=== PATIENT | male | born 1995 | race Caucasian/White ===

== ENCOUNTER 2024-05-21 16:53 | Inpatient (IN) ==
[2024-05-21 17:58] LABS: Appearance Urine Clear (Clear); Bilirubin Urine Negative (Negative); Blood Urine Negative (Negative); Color Urine Yellow; Glucose Urine UA Negative (Negative); Ketones Urine Negative (Negative); Leukocyte Esterase Urine Negative (Negative); Nitrite Urine Negative (Negative); Protein Urine Negative (Negative); Specific Gravity Urine 1.007 (1.000-1.030); Urobilinogen Urine Negative (Negative)
[2024-05-21 18:02] LABS: Basophils # (auto) 0.02 K/uL (0.00-0.20); Basophils % (auto) 0.3 %; Eosinophils # (auto) 0.16 K/uL (0.00-0.50); Eosinophils % (auto) 2.1 %; Hematocrit (blood only) 44.2 % (42.0-52.0); Hemoglobin 15.4 g/dl (14.0-18.0); Immature Granulocytes # (auto) 0.02 K/uL (0.01-0.20); Immature Granulocytes % (auto) 0.3 %; Lymphocytes # (auto) 1.68 K/uL (1.20-3.40); Lymphocytes % (auto) 22.5 %; Mean Corpuscular Hemoglobin 29.1 pg (25.0-34.0); Mean Corpuscular Hgb Conc 34.8 g/dL (32.0-36.0); Mean Corpuscular Volume 83.4 fL (80.0-100.0); Monocytes % (auto) 6.7 %; Neutrophils # (auto) 5.09 K/uL (1.40-6.50); Neutrophils % (auto) 68.1 %; Platelet Count 226 K/uL (130-400); RDW Coefficient of Variation 11.9 % (11.5-14.5); RDW Standard Deviation 36.1 fL (36.4-46.3); White Blood Count 7.47 K/ul (4.8-10.8)
[2024-05-21 18:18] LABS: Albumin Globulin Ratio 1.7 (0.9-2); Albumin Level 4.8 gm/dl (3.4-5.0); BUN Creatinine Ratio 10.9 (10-20); Bilirubin,Total 0.7 mg/dl (0.2-1.0); Calcium 9.6 mg/dl (8.6-10.3); Creatinine Clr Calc Pharmacy 141.5 ml/min; Globulin 2.8 gm/dl (2.5-4.0); Potassium 3.6 mmol/L (3.5-5.1); Total Protein 7.6 gm/dl (6.0-8.3)
[2024-05-21] MEDS: OPTIRAY 320 100ml IV ONE (19:26)
--- NOTE | 2024-05-21 20:25 | Emergency Department Note ---
Impression & Plan Acute appendicitis ED Provider Note NAME: PHOEBE CHAPA AGE: 29 SEX: M : 1995 ARRIVES VIA: Walk-In INFORMANT: Patient, ED PROVIDER(S): Dasia Robles MD CHIEF COMPLAINT: Abdominal pain HPI: This is a 29-year-old male present for abdominal pain. Patient notes that since last night began having right lower quadrant abdominal pain. He notes it is painful at rest, worse with palpation. Occasional left-sided pain as well notes no fevers, nausea, vomiting. Occasional constipation which is since resolved since morning. He had a hernia repair about 5 years ago. No abnormality since then. ROS: See above HPI for pertinent positives & negatives. A total of 10 systems reviewed and were otherwise negative. PAST MEDICAL HISTORY: See Below PAST SURGICAL HISTORY: See Below FAMILY HISTORY: See Below SOCIAL HISTORY: See Below HOME MEDICATIONS: See Below ALLERGIES: See Below VITALS: See Below PHYSICAL EXAMINATION: General: resting comfortably in no acute distress Head: Normocephalic and atraumatic Eyes: Normal inspection, extraocular muscles intact Ear, nose, throat: Normal external exam Neck: Normal range of motion Respiratory: lungs clear to auscultation bilaterally Cardiovascular: Regular rate/rhythm, no murmur GI: Mild left lower quadrant tenderness Extremities: nontender, moves all extremities Neuro: The patient awake and alert, appropriately conversive, no focal deficits, symmetric faces Skin: Warm, dry, and intact MEDICAL DECISION MAKING: This is a 29-year-old male presenting for abdominal pain. Consider appendicitis, diverticulitis, cholecystitis, pancreatitis perforated bowel, low concern for testicular abnormality. -Bloodwork is reviewed showing no significant leukocytosis, anemia, electrolyte or creatinine abnormality -Vital signs are reviewed without abnormality -UA currently negative -After significant delay with CT imaging, patient is positive for uncomplicated appendicitis. -Discussed Dr. Ferrer, who recommends medical manage with IV antibiotics and medical admission. -IV Zosyn ordered, Dr. Cui consulted for admission Differential diagnosis: Consider appendicitis, diverticulitis, cholecystitis, pancreatitis perforated bowel, low concern for testicular abnormalit ER treatment provided: See below Independent History obtained from: Girlfriend Diagnostics interpreted by me: ECG: None Cardiac Monitoring: An order was placed for continuous cardiac monitoring. The monitor shows a rate of 64 with sinus rhythm. Laboratory studies: As stated above and show below. Imaging studies: See below. Past Med/Surg History Problem List (Updated 05/22/24 @ 01:58 by Dasia Robles MD) Acute appendicitis (Acute) ADHD Medical History (Updated 05/22/24 @ 01:58 by Dasia Robles MD) No significant past medical history Surgical History (Updated 02/02/24 @ 09:28 by MICHELLE Huizar III) S/P hernia surgery Umbilical hernia repair 2020 Family History Father Hypertension Denies family history of Ovarian cancer Prostate cancer Myocardial infarction Breast cancer Colorectal cancer Social History Smoking Status: Former smoker Tobacco Type: Cigarettes and E-cigarettes / Vaping Age Started Using Tobacco: 16; packs per day: 1; Second Hand Exposure: No; Do You Dip or Chew Tobacco: No; Hx Alcohol Use: Yes Alcohol type: wine and hard liquor Alcohol Intake Frequency: Monthly or Less Hx Substance Use: No Preferred Language: Frisian marital status: Single Current Living Situation: Family and Significant Other Current Living Situation Comment: 3 y.o stepson, girlfriend current occupational status: employed current occupation: Nurse Case Management for [employer] How many Children do You have: 0 Feels Safe at Home: Yes Childhood Exposure to Second-Hand Smoke: Yes Diet: regular Dental Care, Regularly: Yes Physical Activity Frequency: 1-2 Times per Week Seatbelt Use: always Sunscreen Use: No Allergies Allergies Allergy/AdvReac Type Severity Reaction Status Date / Time No Known Drug Allergies Allergy Verified 02/02/24 09:09 Home Meds Home Medications Medication Instructions Recorded Confirmed ibuprofen PO PRN 02/02/24 02/02/24 naproxen sodium [Aleve] PO PRN 02/02/24 02/02/24 Previous Rx's Medication Instructions Recorded dextroamphetamine-amphetamine 30 30 mg PO DAILY #30 tabs 05/17/24 mg tablet (Adderall) Results & Data (ED) Vital Signs Vital Signs - 24 hr 05/21/24 17:13 05/21/24 17:34 05/21/24 17:34 Temperature 36.7 C Temperature Source Temporal Artery Scan Pulse Rate 90 Pulse Rate [Left Apical] 92 H Pulse Rate from SpO2 Sensor Respiratory Rate 18 18 Respiratory Effort / Characteristics Non-Labored Spontaneous Respiratory Depth Normal Respiratory Pattern Regular Blood Pressure 144/88 H 131/78 Blood Pressure [Right Arm] 131/78 Blood Pressure Mean 106 90 Blood Pressure Mean [Right Arm] 95 Pulse Oximetry 98 97 Oxygen Delivery Method Room Air Room Air Sepsis Recent Fever Within 48 Hours No Sepsis New/Unexplained Change in Mental Status N/A Sepsis Action Taken by Nursing No Action Required 05/21/24 17:42 05/21/24 17:54 05/21/24 18:00 Temperature Temperature Source Pulse Rate 90 91 H Pulse Rate [Left Apical] Pulse Rate from SpO2 Sensor Respiratory Rate 22 23 Respiratory Effort / Characteristics Respiratory Depth Respiratory Pattern Blood Pressure 130/73 Blood Pressure [Right Arm] Blood Pressure Mean 95 Blood Pressure Mean [Right Arm] Pulse Oximetry 97 98 Oxygen Delivery Method Room Air Room Air Sepsis Recent Fever Within 48 Hours Sepsis New/Unexplained Change in Mental Status Sepsis Action Taken by Nursing 05/21/24 18:03 05/21/24 18:06 05/21/24 18:24 Temperature Temperature Source Pulse Rate 106 H 96 H 85 Pulse Rate [Left Apical] Pulse Rate from SpO2 Sensor Respiratory Rate 19 24 Respiratory Effort / Characteristics Respiratory Depth Respiratory Pattern Blood Pressure Blood Pressure [Right Arm] Blood Pressure Mean Blood Pressure Mean [Right Arm] Pulse Oximetry 99 97 Oxygen Delivery Method Room Air Room Air Sepsis Recent Fever Within 48 Hours Sepsis New/Unexplained Change in Mental Status Sepsis Action Taken by Nursing 05/21/24 18:42 05/21/24 19:00 05/21/24 19:00 Temperature Temperature Source Pulse Rate 85 87 Pulse Rate [Left Apical] 90 Pulse Rate from SpO2 Sensor 87 Respiratory Rate 23 18 15 Respiratory Effort / Characteristics Respiratory Depth Respiratory Pattern Blood Pressure 124/68 Blood Pressure [Right Arm] 124/68 Blood Pressure Mean 86 Blood Pressure Mean [Right Arm] 86 Pulse Oximetry 98 97 97 Oxygen Delivery Method Room Air Room Air Sepsis Recent Fever Within 48 Hours Sepsis New/Unexplained Change in Mental Status Sepsis Action Taken by Nursing 05/21/24 20:00 05/21/24 20:00 05/21/24 20:30 Temperature Temperature Source Pulse Rate 87 Pulse Rate [Left Apical] Pulse Rate from SpO2 Sensor 88 Respiratory Rate 25 H Respiratory Effort / Characteristics Respiratory Depth Respiratory Pattern Blood Pressure 133/79 133/79 140/76 Blood Pressure [Right Arm] Blood Pressure Mean 93 97 94 Blood Pressure Mean [Right Arm] Pulse Oximetry 98 Oxygen Delivery Method Sepsis Recent Fever Within 48 Hours Sepsis New/Unexplained Change in Mental Status Sepsis Action Taken by Nursing 05/21/24 20:30 05/21/24 21:00 05/21/24 21:44 Temperature Temperature Source Pulse Rate 80 81 Pulse Rate [Left Apical] 87 Pulse Rate from SpO2 Sensor 81 Respiratory Rate 23 18 Respiratory Effort / Characteristics Respiratory Depth Respiratory Pattern Blood Pressure 140/76 Blood Pressure [Right Arm] Blood Pressure Mean 94 Blood Pressure Mean [Right Arm] Pulse Oximetry 97 96 Oxygen Delivery Method Room Air Sepsis Recent Fever Within 48 Hours Sepsis New/Unexplained Change in Mental Status Sepsis Action Taken by Nursing 05/21/24 23:06 05/21/24 23:30 05/22/24 00:00 Temperature Temperature Source Pulse Rate 76 76 82 Pulse Rate [Left Apical] Pulse Rate from SpO2 Sensor 75 77 Respiratory Rate 16 22 19 Respiratory Effort / Characteristics Respiratory Depth Respiratory Pattern Blood Pressure 120/64 121/73 124/76 Blood Pressure [Right Arm] Blood Pressure Mean 82 89 94 Blood Pressure Mean [Right Arm] Pulse Oximetry 95 96 96 Oxygen Delivery Method Sepsis Recent Fever Within 48 Hours Sepsis New/Unexplained Change in Mental Status Sepsis Action Taken by Nursing 05/22/24 00:30 05/22/24 01:00 05/22/24 01:30 Temperature Temperature Source Pulse Rate 69 87 72 Pulse Rate [Left Apical] Pulse Rate from SpO2 Sensor 73 80 71 Respiratory Rate 17 22 15 Respiratory Effort / Characteristics Respiratory Depth Respiratory Pattern Blood Pressure 121/66 123/73 121/76 Blood Pressure [Right Arm] Blood Pressure Mean 87 89 91 Blood Pressure Mean [Right Arm] Pulse Oximetry 97 96 97 Oxygen Delivery Method Sepsis Recent Fever Within 48 Hours Sepsis New/Unexplained Change in Mental Status Sepsis Action Taken by Nursing 05/22/24 01:43 Temperature Temperature Source Pulse Rate 64 Pulse Rate [Left Apical] Pulse Rate from SpO2 Sensor Respiratory Rate Respiratory Effort / Characteristics Respiratory Depth Respiratory Pattern Blood Pressure Blood Pressure [Right Arm] Blood Pressure Mean Blood Pressure Mean [Right Arm] Pulse Oximetry Oxygen Delivery Method Sepsis Recent Fever Within 48 Hours Sepsis New/Unexplained Change in Mental Status Sepsis Action Taken by Nursing Laboratory Data 05/21/24 17:30 05/21/24 17:30 Lab Results 05/21/24 05/21/24 Range/Units 17:23 17:30 WBC 7.47 (4.8-10.8) K/ul RBC 5.30 (4.70-6.10) M/uL Hgb 15.4 (14.0-18.0) g/dl Hct 44.2 (42.0-52.0) % MCV 83.4 (80.0-100.0) fL MCH 29.1 (25.0-34.0) pg MCHC 34.8 (32.0-36.0) g/dL RDW Std Deviation 36.1 L (36.4-46.3) fL RDW Coeff of Estefanía 11.9 (11.5-14.5) % Plt Count 226 (130-400) K/uL MPV 11.0 (9.4-12.4) fL Immature Gran % (Auto) 0.3 % Neut % (Auto) 68.1 % Lymph % (Auto) 22.5 % Emanuel % (Auto) 6.7 % Eos % (Auto) 2.1 % Baso % (Auto) 0.3 % Neut # (Auto) 5.09 (1.40-6.50) K/uL Lymph # (Auto) 1.68 (1.20-3.40) K/uL Emanuel # (Auto) 0.50 (0.11-0.59) K/uL Eos # (Auto) 0.16 (0.00-0.50) K/uL Baso # (Auto) 0.02 (0.00-0.20) K/uL Immature Gran # (Auto) 0.02 (0.01-0.20) K/uL Sodium 138 (136-145) mmol/L Potassium 3.6 (3.5-5.1) mmol/L Chloride 103 (98-107) mmol/L Carbon Dioxide 27 (21-32) mmol/L Anion Gap 8 (3-11) BUN 10 (6-23) mg/dl Creatinine 0.92 (0.6-1.4) mg/dl Est Cr Clr Drug Dosing 141.5 ml/min eGFR 115.48 BUN/Creatinine Ratio 10.9 (10-20) Glucose 102 H (70-99(Fasting)) mg/dl Calcium 9.6 (8.6-10.3) mg/dl Total Bilirubin 0.7 (0.2-1.0) mg/dl AST 16 (13-39) U/L ALT 19 (7-52) U/L Alkaline Phosphatase 62 (34-104) U/L Total Protein 7.6 (6.0-8.3) gm/dl Albumin 4.8 (3.4-5.0) gm/dl Globulin 2.8 (2.5-4.0) gm/dl Albumin/Globulin Ratio 1.7 (0.9-2) Lipase 23 (11-82) U/L Urine Color Yellow Urine Appearance Clear (Clear) Urine pH 6.0 (4.5-7.5) Ur Specific [place] 1.007 (1.000-1.030) Urine Protein Negative (Negative) Urine Glucose (UA) Negative (Negative) Urine Ketones Negative (Negative) Urine Blood Negative (Negative) Urine Nitrite Negative (Negative) Urine Bilirubin Negative (Negative) Urine Urobilinogen Negative (Negative) Ur Leukocyte Esterase Negative (Negative) Administered Medications Discontinued Medications Piperacillin Sod/Tazobactam Sod (Zosyn) 4.5 gm in 100 mls @ 200 mls/hr IV NOW ONE; Protocol Stop: 05/21/24 23:54 Last Infusion: 05/22/24 00:21 Dose: Infused Documented By: Admin: 05/21/24 23:32 Dose: 200 mls/hr Documented By: ASHLEY Ioversol (Optiray 320 100ml) 94 ml IV ONCE ONE Stop: 05/21/24 19:26 Last Admin: 05/21/24 19:26 Dose: 94 ml Documented By: JOSE Imaging Data Radiologist's Impression: Abdomen/Pelvis CT 05/21/24 18:33 CR Exam(s): CT ABDOMEN + PELVIS With Contrast IV Amt: 94 ml opti 320 EXAM: CT Abdomen and Pelvis With Intravenous Contrast CLINICAL HISTORY: Reason for exam: RLQ pain, appendicitis. TECHNIQUE: Axial computed tomography images of the abdomen and pelvis with intravenous contrast. CTDI is 27.59 mGy and DLP is 1436.44 mGy-cm. Automated exposure control was utilized for the study. A dose lowering technique was utilized adhering to the principles of ALARA. CONTRAST: Patient received 94 ml opti 320 of IV contrast COMPARISON: No relevant prior studies available. FINDINGS: ABDOMEN: Liver: Unremarkable. Gallbladder and bile ducts: Unremarkable. Pancreas: Unremarkable. Spleen: Unremarkable. Adrenals: Unremarkable. Kidneys and ureters: Unremarkable. No obstructing stones. No hydronephrosis. Stomach and bowel: Unremarkable. PELVIS: Appendix: Mucosal thickening and hyperemia within the appendix which is fluid filled measuring up to 1 cm. Periappendiceal fat stranding present. No perforation or abscess. Bladder: Unremarkable. Reproductive: Unremarkable as visualized. ABDOMEN and PELVIS: Intraperitoneal space: Unremarkable. No free air. No significant fluid collection. Bones/joints: No acute fracture. Soft tissues: Unremarkable. Vasculature: Unremarkable. Lymph nodes: Unremarkable. IMPRESSION: Acute uncomplicated appendicitis. Communications: Verify Receipt Electronically signed by: Sesar Busby MD 05/21/24 23:16 PM Discharge Plan Visit Data Chief Complaint: Abdominal Pain Stated Complaint: ABDOMINAL PAIN ED Provider: Dasia Robles Discharge Problem: Acute appendicitis Forms Stand Alone Forms: [facility] Prescriptions Prescriptions: No Action dextroamphetamine-amphetamine [Adderall] 30 mg tablet 30 mg PO DAILY Qty: 30 0RF naproxen sodium [Aleve] PO PRN ibuprofen PO PRN Referrals Referrals: Mj Harris III, CRNP [Primary Care Provider] -
--- NOTE | 2024-05-21 23:17 | CT Scan Report ---
Exam(s): CT ABDOMEN + PELVIS With Contrast IV Amt: 94 ml opti 320 EXAM: CT Abdomen and Pelvis With Intravenous Contrast CLINICAL HISTORY: Reason for exam: RLQ pain, appendicitis. TECHNIQUE: Axial computed tomography images of the abdomen and pelvis with intravenous contrast. CTDI is 27.59 mGy and DLP is 1436.44 mGy-cm. Automated exposure control was utilized for the study. A dose lowering technique was utilized adhering to the principles of ALARA. CONTRAST: Patient received 94 ml opti 320 of IV contrast COMPARISON: No relevant prior studies available. FINDINGS: ABDOMEN: Liver: Unremarkable. Gallbladder and bile ducts: Unremarkable. Pancreas: Unremarkable. Spleen: Unremarkable. Adrenals: Unremarkable. Kidneys and ureters: Unremarkable. No obstructing stones. No hydronephrosis. Stomach and bowel: Unremarkable. PELVIS: Appendix: Mucosal thickening and hyperemia within the appendix which is fluid filled measuring up to 1 cm. Periappendiceal fat stranding present. No perforation or abscess. Bladder: Unremarkable. Reproductive: Unremarkable as visualized. ABDOMEN and PELVIS: Intraperitoneal space: Unremarkable. No free air. No significant fluid collection. Bones/joints: No acute fracture. Soft tissues: Unremarkable. Vasculature: Unremarkable. Lymph nodes: Unremarkable. IMPRESSION: Acute uncomplicated appendicitis. Communications: Verify Receipt Electronically signed by: Sesar Busby MD 05/21/24 23:16 PM
[2024-05-21] MEDS: PIPERACILLIN/TAZOBACTAM 4.5 GM/100 ML BAG IV ONE (23:32)
--- NOTE | 2024-05-22 01:42 | History & Physical Report ---
Date of Service May 22, 2024 Assessment & Plan (1) Uncomplicated acute appendicitis: (2) ADHD: Plan Uncomplicated acute appendicitis- Patient is being admitted to [facility] service at the request of general surgery NPO Continue Zosyn 4.5 g IV every 8 hours begun in the ED Acetaminophen 1 g IV every 8 hours as needed for mild pain or fever Morphine sulfate 2 mg IV every 3 hours as needed for moderate to severe pain Lactated Ringer's at 80 mL/h x 1 L Zofran 4 mg IV every 6 hours as needed Pantoprazole 40 mg IV Consult general surgery Dr. Zamudio, who has been notified by the ED ADHD- Hold Adderall History of Present Illness Chief Complaint: The patient to the emergency department with plaint of right lower quadrant earlier this evening, not associated nausea, vomiting, fevers, chills, change in bowel or bladder pattern. He denies any recent travels or sick exposures. He denies any unusual food intakes Primary Care Provider: Mj Harris III, CRNP The patient is a 29-year-old male with a past medical history including ADHD and history of umbilical hernia repair, who presents to the emergency department with acute onset of right lower quadrant pain without associated symptoms of nausea, vomiting, fevers, chills, change in bowel or bladder habits. CT scan of abdomen pelvis shows acute uncomplicated appendicitis. General surgery consulted by the ED, asks that the patient be admitted to the [facility] service and be placed on IV antibiotics until seen by general surgery Allergies Allergy/AdvReac Type Severity Reaction Status Date / Time No Known Drug Allergies Allergy Verified 02/02/24 09:09 Home Medications Medication Instructions Recorded Confirmed Type ibuprofen PO PRN 02/02/24 02/02/24 History naproxen sodium [Aleve] PO PRN 02/02/24 02/02/24 History dextroamphetamine-amphetamine 30 30 mg PO DAILY #30 tabs 05/17/24 Rx mg tablet (Adderall) Past Med/Surg History Problem List (Updated 05/22/24 @ 02:12 by Antonio Quan MD) Uncomplicated acute appendicitis ADHD Medical History (Updated 05/22/24 @ 02:12 by Antonio Quan MD) No significant past medical history Surgical History (Updated 02/02/24 @ 09:28 by MICHELLE Huizar III) S/P hernia surgery Umbilical hernia repair 2020 Family History Father Hypertension Denies family history of Ovarian cancer Prostate cancer Myocardial infarction Breast cancer Colorectal cancer Social History Smoking Status: Former smoker Tobacco Type: Cigarettes and E-cigarettes / Vaping Age Started Using Tobacco: 16; packs per day: 1; Second Hand Exposure: No; Do You Dip or Chew Tobacco: No; Hx Alcohol Use: Yes Alcohol type: wine and hard liquor Alcohol Intake Frequency: Monthly or Less Hx Substance Use: No Preferred Language: Uzbek marital status: Single Current Living Situation: Family and Significant Other Current Living Situation Comment: 3 y.o saraon, girlfriend current occupational status: employed current occupation: [employer] How many Children do You have: 0 Feels Safe at Home: Yes Childhood Exposure to Second-Hand Smoke: Yes Diet: regular Dental Care, Regularly: Yes Physical Activity Frequency: 1-2 Times per Week Seatbelt Use: always Sunscreen Use: No Review of Systems Review of Systems: The patient denies chest pain, palpitations, shortness of breath, dyspnea on exertion, cough, lower extremity swelling, sore throat, fevers, chills, sweats, weight change, fatigue, nausea, vomiting, diarrhea , constipation, blood in urine or stool, dysuria, urinary frequency or urgency, lightheadedness, dizziness, headache, memory loss, loss of consciousness, rash, abnormal bruising or bleeding, imbalance, focal or generalized weakness, numbness or tingling in arms or legs, generalized arthralgias or myalgias, neck pain, or night sweats. The review of systems is otherwise negative other than for that already noted above, and at least 10 systems have been reviewed. Physical Exam Physical Exam: The patient is awake, alert and oriented 3, well developed and well nourished, normocephalic and atraumatic, lying in bed and in no acute distress. HEENT--PERRL, EOMI, mucous membranes and oropharynx mildly dry. Neck--supple. No JVD. No bruits. Thyroid normal, trachea midline, no adenopathy. Heart--normal S1 and S2. No murmurs, rubs or gallops. Lungs--clear bilaterally, no respiratory distress, no accessory muscle use. Abdomen--normal bowel sounds and soft. Mild right lower quadrant tenderness. No rebound. Nondistended, no hernias or masses, no organomegaly. Extremities--no cyanosis or clubbing. No edema. Dermatologic--normal skin turgor, normal color, no abnormal lymph nodes, no rash. Neurologic--cranial nerves II through XII grossly intact. Rheumatologic--normal range of motion. Psychiatric--normal affect. Results & Data Results & Data Vital Signs (Past 12 Hours) Vital Signs Temp Pulse Pulse Resp BP BP Pulse Ox 05/22/24 01:30 72 15 121/76 97 05/22/24 01:00 87 22 123/73 96 05/22/24 00:30 69 17 121/66 97 05/22/24 00:00 82 19 124/76 96 05/21/24 23:30 76 22 121/73 96 05/21/24 23:06 76 16 120/64 95 05/21/24 21:44 81 05/21/24 21:00 87 18 96 05/21/24 20:30 80 23 140/76 97 05/21/24 20:30 140/76 05/21/24 20:00 87 25 H 133/79 98 05/21/24 20:00 133/79 05/21/24 19:00 87 15 124/68 97 05/21/24 19:00 90 18 124/68 97 05/21/24 18:42 85 23 98 05/21/24 18:24 85 24 97 05/21/24 18:06 96 H 19 99 05/21/24 18:03 106 H 05/21/24 18:00 130/73 05/21/24 17:54 91 H 23 98 05/21/24 17:42 90 22 97 05/21/24 17:34 131/78 05/21/24 17:34 92 H 18 131/78 97 05/21/24 17:13 36.7 C 90 18 144/88 H 98 O2 Del Method 05/22/24 01:30 05/22/24 01:00 05/22/24 00:30 05/22/24 00:00 05/21/24 23:30 05/21/24 23:06 11/01/24 21:44 05/21/24 21:00 Room Air 05/21/24 20:30 05/21/24 20:30 05/21/24 20:00 05/21/24 20:00 05/21/24 19:00 05/21/24 19:00 Room Air 05/21/24 18:42 Room Air 05/21/24 18:24 Room Air 05/21/24 18:06 Room Air 05/21/24 18:03 05/21/24 18:00 05/21/24 17:54 Room Air 05/21/24 17:42 Room Air 05/21/24 17:34 05/21/24 17:34 Room Air 05/21/24 17:13 Room Air Laboratory Results Laboratory Results WBC 7.47 K/ul (4.8-10.8) 05/21/24 17:30 RBC 5.30 M/uL (4.70-6.10) 05/21/24 17:30 Hgb 15.4 g/dl (14.0-18.0) 05/21/24 17:30 Hct 44.2 % (42.0-52.0) 05/21/24 17:30 MCV 83.4 fL (80.0-100.0) 05/21/24 17:30 MCH 29.1 pg (25.0-34.0) 05/21/24 17:30 MCHC 34.8 g/dL (32.0-36.0) 05/21/24 17:30 RDW Std Deviation 36.1 fL (36.4-46.3) L 05/21/24 17:30 RDW Coeff of Estefanía 11.9 % (11.5-14.5) 05/21/24 17:30 Plt Count 226 K/uL (130-400) 05/21/24 17:30 MPV 11.0 fL (9.4-12.4) 05/21/24 17:30 Immature Gran % (Auto) 0.3 % 05/21/24 17:30 Neut % (Auto) 68.1 % 05/21/24 17:30 Lymph % (Auto) 22.5 % 05/21/24 17:30 Island % (Auto) 6.7 % 05/21/24 17:30 Eos % (Auto) 2.1 % 05/21/24 17:30 Baso % (Auto) 0.3 % 05/21/24 17:30 Neut # (Auto) 5.09 K/uL (1.40-6.50) 05/21/24 17:30 Lymph # (Auto) 1.68 K/uL (1.20-3.40) 05/21/24 17:30 Island # (Auto) 0.50 K/uL (0.11-0.59) 05/21/24 17:30 Eos # (Auto) 0.16 K/uL (0.00-0.50) 05/21/24 17:30 Baso # (Auto) 0.02 K/uL (0.00-0.20) 05/21/24 17:30 Immature Gran # (Auto) 0.02 K/uL (0.01-0.20) 05/21/24 17:30 Sodium 138 mmol/L (136-145) 05/21/24 17:30 Potassium 3.6 mmol/L (3.5-5.1) 05/21/24 17:30 Chloride 103 mmol/L (98-107) 05/21/24 17:30 Carbon Dioxide 27 mmol/L (21-32) 05/21/24 17:30 Anion Gap 8 (3-11) 05/21/24 17:30 BUN 10 mg/dl (6-23) 05/21/24 17:30 Creatinine 0.92 mg/dl (0.6-1.4) 05/21/24 17:30 Est Cr Clr Drug Dosing 141.5 ml/min 05/21/24 17:30 eGFR 115.48 05/21/24 17:30 BUN/Creatinine Ratio 10.9 (10-20) 05/21/24 17:30 Glucose 102 mg/dl (70-99(Fasting)) H 05/21/24 17:30 Calcium 9.6 mg/dl (8.6-10.3) 05/21/24 17:30 Total Bilirubin 0.7 mg/dl (0.2-1.0) 05/21/24 17:30 AST 16 U/L (13-39) 05/21/24 17:30 ALT 19 U/L (7-52) 05/21/24 17:30 Alkaline Phosphatase 62 U/L (34-104) 05/21/24 17:30 Total Protein 7.6 gm/dl (6.0-8.3) 05/21/24 17:30 Albumin 4.8 gm/dl (3.4-5.0) 05/21/24 17:30 Globulin 2.8 gm/dl (2.5-4.0) 05/21/24 17:30 Albumin/Globulin Ratio 1.7 (0.9-2) 05/21/24 17:30 Lipase 23 U/L (11-82) 05/21/24 17:30 Urine Color Yellow 05/21/24 17:23 Urine Appearance Clear (Clear) 05/21/24 17:23 Urine pH 6.0 (4.5-7.5) 05/21/24 17:23 Ur Specific [place] 1.007 (1.000-1.030) 05/21/24 17:23 Urine Protein Negative (Negative) 05/21/24 17:23 Urine Glucose (UA) Negative (Negative) 05/21/24 17:23 Urine Ketones Negative (Negative) 05/21/24 17:23 Urine Blood Negative (Negative) 05/21/24 17:23 Urine Nitrite Negative (Negative) 05/21/24 17:23 Urine Bilirubin Negative (Negative) 05/21/24 17:23 Urine Urobilinogen Negative (Negative) 05/21/24 17:23 Ur Leukocyte Esterase Negative (Negative) 05/21/24 17:23 Impressions Abdomen/Pelvis CT 05/21/24 18:33 CR Exam(s): CT ABDOMEN + PELVIS With Contrast IV Amt: 94 ml opti 320 EXAM: CT Abdomen and Pelvis With Intravenous Contrast CLINICAL HISTORY: Reason for exam: RLQ pain, appendicitis. TECHNIQUE: Axial computed tomography images of the abdomen and pelvis with intravenous contrast. CTDI is 27.59 mGy and DLP is 1436.44 mGy-cm. Automated exposure control was utilized for the study. A dose lowering technique was utilized adhering to the principles of ALARA. CONTRAST: Patient received 94 ml opti 320 of IV contrast COMPARISON: No relevant prior studies available. FINDINGS: ABDOMEN: Liver: Unremarkable. Gallbladder and bile ducts: Unremarkable. Pancreas: Unremarkable. Spleen: Unremarkable. Adrenals: Unremarkable. Kidneys and ureters: Unremarkable. No obstructing stones. No hydronephrosis. Stomach and bowel: Unremarkable. PELVIS: Appendix: Mucosal thickening and hyperemia within the appendix which is fluid filled measuring up to 1 cm. Periappendiceal fat stranding present. No perforation or abscess. Bladder: Unremarkable. Reproductive: Unremarkable as visualized. ABDOMEN and PELVIS: Intraperitoneal space: Unremarkable. No free air. No significant fluid collection. Bones/joints: No acute fracture. Soft tissues: Unremarkable. Vasculature: Unremarkable. Lymph nodes: Unremarkable. IMPRESSION: Acute uncomplicated appendicitis. Communications: Verify Receipt Electronically signed by: Sesar Busby MD 05/21/24 23:16 PM Code Status & VTE Plan Code Status Full code VTE Prophylaxis Plan VTE Prophylaxis will be ordered: Yes PG Care Time/CCT Total # of Minutes Spent Total Time Spent with Patient: Total time spent is greater than 50% in coordination of care (as documented) at patient's floor/unit and/or counseling patient: Coding Level of Care Code 39707 INT INP/OBS CARE 2/55MIN Diagnoses Uncomplicated acute appendicitis K35.80 ADHD F90.9
[2024-05-22] MEDS ORDERED: ACETAMINOPHEN 1000 MG/100 ML IV IV PRN (03:01)
[2024-05-22] MEDS ORDERED: MoRPHine SULFATE 2 MG/ML CARP IV PRN (03:01)
[2024-05-22] MEDS ORDERED: ONDANSETRON INJ 2 MG/ML 2 ML VIAL IV PRN (03:01)
[2024-05-22] MEDS ORDERED: ACETAMINOPHEN 1,000 MG/100 ML VIAL IV PRN (03:15)
[2024-05-22] MEDS: LACTATED RINGER'S 1,000 ML IV SCH (04:13)
[2024-05-22] MEDS: PIPERACILLIN/TAZOBACTAM 4.5 GM/100 ML BAG IV SCH (06:07)
[2024-05-22 06:15] LABS: Basophils # (auto) 0.02 K/uL (0.00-0.20); Basophils % (auto) 0.3 %; Eosinophils # (auto) 0.27 K/uL (0.00-0.50); Eosinophils % (auto) 4.7 %; Hematocrit (blood only) 44.1 % (42.0-52.0); Hemoglobin 15.3 g/dl (14.0-18.0); Immature Granulocytes # (auto) 0.01 K/uL (0.01-0.20); Immature Granulocytes % (auto) 0.2 %; Lymphocytes # (auto) 2.03 K/uL (1.20-3.40); Mean Corpuscular Hgb Conc 34.7 g/dL (32.0-36.0); Mean Corpuscular Volume 83.7 fL (80.0-100.0); Mean Platelet Volume 10.9 fL (9.4-12.4); Monocytes # (auto) 0.66 K/uL (0.11-0.59); Monocytes % (auto) 11.4 %; Neutrophils # (auto) 2.81 K/uL (1.40-6.50); Neutrophils % (auto) 48.4 %; Platelet Count 208 K/uL (130-400); RDW Coefficient of Variation 11.9 % (11.5-14.5); RDW Standard Deviation 35.8 fL (36.4-46.3); Red Blood Count 5.27 M/uL (4.70-6.10)
[2024-05-22 06:34] LABS: Albumin Level 4.4 gm/dl (3.4-5.0); BUN Creatinine Ratio 10.9 (10-20); Calcium 9.5 mg/dl (8.6-10.3); Creatinine Clr Calc Pharmacy 141.5 ml/min; Phosphorus 5.1 mg/dl (2.5-4.9); Potassium 4.4 mmol/L (3.5-5.1)
[2024-05-22] MEDS: PANTOprazole 40 MG/10 ML SYR IV SCH (08:12)
--- NOTE | 2024-05-22 08:29 | Hospitalist Progress Note ---
Date of Service May 22, 2024 Assessment & Plan (1) Uncomplicated acute appendicitis: (2) ADHD: Plan Uncomplicated acute appendicitis- Patient is being admitted to [facility] service at the request of general surgery Remains on Zosyn IV 4.5gm Q8H WBC wnl, remains afebrile. LFTs wnl. VSS Continues NPO Continue LR @ 75cc/hr Tylenol 1gm IV Q8h prn pain/fever, morphine 2mg IV available for breakthrough Has NOT required any pain medication Protonix IVP daily for GI proph General surgery consulted, Dr Zamudio. Messaged, to see this morning and will continue NPO for now to see if able to do appendectomy today vs planning continued abx/possible outpatient appendectomy (patient prefers while inpatient if possible) ADHD- Hold Adderall Admission and Anticipated Discharge Date Admission Date: May 22, 2024 Supervising Physician Co-Signing Physician Notes The patient was not seen by me. The chart was reviewed. Case discussed with SANDRA Calderón. Agree with assessment and plan Subjective BRIDGE NOTE: ADMITTED AFTER MIDNIGHT, awaiting surgical evaluation. Eval this morning, resting in bed. LLQ pain but tolerable without need for medication at this time. Remains NPO, not yet seen by surgery but agreeable to surgery if able to occur today vs possible dc on abx and outpt appendectomy however he prefers surgery to resolve issue if possible. IVF continued. Messaged surgery, Dr Zamudio to see patient this morning/further plan pending evaluation by surgery. Questions/concerns addressed at this time. Physical Exam 2 Physical Exam: 29yo male resting in bed, sleeping, awok en, NAD Head atraumatic, normocephalic, mmm, trachea midline Resp: even/unlabored, on room air CV: RRR/slightly marci upper 50s, no significant m/r/g, no pitting edema GI: +BS, soft/slight distension, mild RLQ tenderness to palpation without guarding/rebound no huertas MSK/Neuro: nonfocal, answering questions appropriately Psych: AOx3, cooperative, fatigued appearing Results & Data Results & Data Vital Signs (Past 12 Hours) Vital Signs Temp Pulse Pulse Pulse Resp BP BP 05/22/24 07:58 36.1 C L 59 L 18 116/69 05/22/24 03:00 36.5 C 74 20 117/70 05/22/24 02:50 65 20 121/76 05/22/24 01:43 64 05/22/24 01:30 72 15 121/76 05/22/24 01:00 87 22 123/73 05/22/24 00:30 69 17 121/66 05/22/24 00:00 82 19 124/76 05/21/24 23:30 76 22 121/73 05/21/24 23:06 76 16 120/64 05/21/24 21:44 81 05/21/24 21:00 87 18 05/21/24 20:30 80 23 140/76 05/21/24 20:30 140/76 Pulse Ox O2 Del Method 05/22/24 07:58 97 Room Air 05/22/24 03:00 93 Room Air 05/22/24 02:50 95 Room Air 05/22/24 01:43 05/22/24 01:30 97 05/22/24 01:00 96 05/22/24 00:30 97 05/22/24 00:00 96 05/21/24 23:30 96 05/21/24 23:06 95 05/21/24 21:44 05/21/24 21:00 96 Room Air 05/21/24 20:30 97 05/21/24 20:30 Laboratory Results 05/22/24 05:49 05/22/24 05:49 LFTs wnl, lipase 23 Diagnostic Findings Abdomen/Pelvis CT 05/21/24 18:33 CR Exam(s): CT ABDOMEN + PELVIS With Contrast IV Amt: 94 ml opti 320 EXAM: CT Abdomen and Pelvis With Intravenous Contrast CLINICAL HISTORY: Reason for exam: RLQ pain, appendicitis. TECHNIQUE: Axial computed tomography images of the abdomen and pelvis with intravenous contrast. CTDI is 27.59 mGy and DLP is 1436.44 mGy-cm. Automated exposure control was utilized for the study. A dose lowering technique was utilized adhering to the principles of ALARA. CONTRAST: Patient received 94 ml opti 320 of IV contrast COMPARISON: No relevant prior studies available. FINDINGS: ABDOMEN: Liver: Unremarkable. Gallbladder and bile ducts: Unremarkable. Pancreas: Unremarkable. Spleen: Unremarkable. Adrenals: Unremarkable. Kidneys and ureters: Unremarkable. No obstructing stones. No hydronephrosis. Stomach and bowel: Unremarkable. PELVIS: Appendix: Mucosal thickening and hyperemia within the appendix which is fluid filled measuring up to 1 cm. Periappendiceal fat stranding present. No perforation or abscess. Bladder: Unremarkable. Reproductive: Unremarkable as visualized. ABDOMEN and PELVIS: Intraperitoneal space: Unremarkable. No free air. No significant fluid collection. Bones/joints: No acute fracture. Soft tissues: Unremarkable. Vasculature: Unremarkable. Lymph nodes: Unremarkable. IMPRESSION: Acute uncomplicated appendicitis. Communications: Verify Receipt Electronically signed by: Sesar Busby MD 05/21/24 23:16 PM PG Care Time/CCT Total # of Minutes Spent Total Time Spent with Patient: Total time spent is greater than 50% in coordination of care (as documented) at patient's floor/unit and/or counseling patient: Coding Level of Care Code None Diagnoses Uncomplicated acute appendicitis K35.80 ADHD F90.9
--- NOTE | 2024-05-22 11:32 | Surgery Consultation ---
Date of Consultation May 22, 2024 Assessment & Plan (1) Uncomplicated acute appendicitis: responding to antibiotics begin clears NPO past MN if pain not resolved or has fevers by AM, will proceed with lap appy likely will not need operation History of Present Illness Attending Physician: Mahad Samano MD History of Present Illness This is a 29YO male admitted with uncomplicated appendicitis and no fecalith. He has been afebrile and has a normal WBC. His pain has responded to antibiotic treatment with some improveemnt. The pain began last night in his right lower quadrant abdominal. No fevers, nausea, vomiting. CT scan with early appendicitis amenable to antibiotic treatment. Allergies Allergy/AdvReac Type Severity Reaction Status Date / Time No Known Drug Allergies Allergy Verified 05/22/24 11:18 Home Medications Medication Instructions Recorded Confirmed Type dextroamphetamine-amphetamine 30 30 mg PO DAILY #30 tabs 05/17/24 05/22/24 Rx mg tablet (Adderall) ibuprofen 200 mg tablet 200 mg PO Q6H PRN Pain 05/22/24 05/22/24 History naproxen sodium 220 mg tablet 220 mg PO BID PRN Pain 05/22/24 05/22/24 History (Aleve) Patient History Medical History (Updated 05/22/24 @ 02:12 by Antonio Quan MD) No significant past medical history Surgical History (Updated 02/02/24 @ 09:28 by MICHELLE Huizar III) S/P hernia surgery Umbilical hernia repair 2019 Family History Father Hypertension Denies family history of Ovarian cancer Prostate cancer Myocardial infarction Breast cancer Colorectal cancer Social History Smoking Status: Former smoker Tobacco Type: Cigarettes, E-cigarettes / Vaping and Smokeless Tobacco (Dip or Chew) Age Started Using Tobacco: 16; packs per day: 1; Second Hand Exposure: No; Do You Dip or Chew Tobacco: No; Hx Alcohol Use: No Hx Substance Use: No Preferred Language: Montserratian Manager Monitoring Required: No marital status: Single Current Living Situation: Significant Other Current Living Situation Comment: house current occupational status: employed current occupation: Tax Clerk for [employer] How many Children do You have: 0 Feels Safe at Home: Yes Childhood Exposure to Second-Hand Smoke: Yes Diet: regular Dental Care, Regularly: Yes Physical Activity Frequency: 1-2 Times per Week Seatbelt Use: always Sunscreen Use: No Review of Systems Constitutional: no fever and no chills Eyes: no problem reported Ear, Nose, Mouth, Throat: no problem reported Respiratory: no cough and no dyspnea Cardiovascular: no chest pain Gastrointestinal: + abdominal pain; no nausea, no vomiting and no change in bowel habits Genitourinary: no dysuria Musculoskeletal: no problem reported Integumentary: no problem reported Neurologic: no localized weakness and no generalized weakness Psychiatric: no behavioral changes Hematologic / Lymphatic: no easy bleeding and no easy bruising Physical Exam Constitutional: WD/WN, vitals as above Eyes: PERRL, conjunctivae normal, anicteric sclerae ENMT: external ear and nose normal, oropharynx normal Neck: trachea midline Respiratory: normal respiratory effort, lungs clear to auscultation Cardiovascular: RRR, no murmur, no edema Gastrointestinal (Abdomen): Inspection/Auscultation: abdomen normal to inspection; abdomen not distended, + abnormal bowel sounds and no abdominal surgical scar Percussion/Palpation: + abdomen tender and abdomen soft; no guarding and abdomen not rigid Musculoskeletal: Head/Neck/Chest: normocephalic and head atraumatic Skin: no rashes, warm and dry Psychiatric: Orientation: alert and oriented x 3 Results & Data Vital Signs (Past 12 Hours) Vital Signs Temp Pulse Pulse Resp BP BP Pulse Ox 05/22/24 07:58 36.1 C L 59 L 18 116/69 97 05/22/24 03:00 36.5 C 74 20 117/70 93 05/22/24 02:50 65 20 121/76 95 05/22/24 01:43 64 05/22/24 01:30 72 15 121/76 97 05/22/24 01:00 87 22 123/73 96 05/22/24 00:30 69 17 121/66 97 05/22/24 00:00 82 19 124/76 96 05/21/24 23:30 76 22 121/73 96 O2 Del Method 05/22/24 07:58 Room Air 05/22/24 03:00 Room Air 05/22/24 02:50 Room Air 05/22/24 01:43 05/22/24 01:30 05/22/24 01:00 05/22/24 00:30 05/22/24 00:00 05/21/24 23:30 Diagnostic Findings EXAM: CT Abdomen and Pelvis With Intravenous Contrast CLINICAL HISTORY: Reason for exam: RLQ pain, appendicitis. TECHNIQUE: Axial computed tomography images of the abdomen and pelvis with intravenous contrast. CTDI is 27.59 mGy and DLP is 1436.44 mGy-cm. Automated exposure control was utilized for the study. A dose lowering technique was utilized adhering to the principles of ALARA. CONTRAST: Patient received 94 ml opti 320 of IV contrast COMPARISON: No relevant prior studies available. FINDINGS: ABDOMEN: Liver: Unremarkable. Gallbladder and bile ducts: Unremarkable. Pancreas: Unremarkable. Spleen: Unremarkable. Adrenals: Unremarkable. Kidneys and ureters: Unremarkable. No obstructing stones. No hydronephrosis. Stomach and bowel: Unremarkable. PELVIS: Appendix: Mucosal thickening and hyperemia within the appendix which is fluid filled measuring up to 1 cm. Periappendiceal fat stranding present. No perforation or abscess. Bladder: Unremarkable. Reproductive: Unremarkable as visualized. ABDOMEN and PELVIS: Intraperitoneal space: Unremarkable. No free air. No significant fluid collection. Bones/joints: No acute fracture. Soft tissues: Unremarkable. Vasculature: Unremarkable. Lymph nodes: Unremarkable. IMPRESSION: Acute uncomplicated appendicitis.
[2024-05-23 06:13] LABS: Basophils # (auto) 0.03 K/uL (0.00-0.20); Basophils % (auto) 0.5 %; Eosinophils # (auto) 0.31 K/uL (0.00-0.50); Eosinophils % (auto) 5.2 %; Hematocrit (blood only) 43.5 % (42.0-52.0); Hemoglobin 14.9 g/dl (14.0-18.0); Immature Granulocytes # (auto) 0.01 K/uL (0.01-0.20); Immature Granulocytes % (auto) 0.2 %; Lymphocytes # (auto) 1.89 K/uL (1.20-3.40); Lymphocytes % (auto) 31.7 %; Mean Corpuscular Hemoglobin 28.9 pg (25.0-34.0); Mean Corpuscular Hgb Conc 34.3 g/dL (32.0-36.0); Mean Corpuscular Volume 84.3 fL (80.0-100.0); Mean Platelet Volume 11.1 fL (9.4-12.4); Monocytes # (auto) 0.61 K/uL (0.11-0.59); Monocytes % (auto) 10.2 %; Neutrophils # (auto) 3.11 K/uL (1.40-6.50); Neutrophils % (auto) 52.2 %; Platelet Count 215 K/uL (130-400); RDW Coefficient of Variation 11.9 % (11.5-14.5); RDW Standard Deviation 36.1 fL (36.4-46.3); Red Blood Count 5.16 M/uL (4.70-6.10); White Blood Count 5.96 K/ul (4.8-10.8)
[2024-05-23 06:28] LABS: Albumin Level 4.2 gm/dl (3.4-5.0); BUN Creatinine Ratio 9.3 (10-20); Calcium 9.1 mg/dl (8.6-10.3); Creatinine Clr Calc Pharmacy 151.4 ml/min; Magnesium 2.1 mg/dl (1.7-2.4); Phosphorus 4.2 mg/dl (2.5-4.9); Potassium 3.9 mmol/L (3.5-5.1)
--- NOTE | 2024-05-23 08:18 | Hospitalist Progress Note ---
Date of Service May 23, 2024 Assessment & Plan (1) Uncomplicated acute appendicitis: Plan: Uncomplicated acute appendicitis- Patient is being admitted to [facility] service at the request of general surgery Remains on Zosyn IV 4.5gm Q8H WBC wnl, remains afebrile. LFTs wnl. VSS NPO, IVF, general surgery consulted Pain control, Protonix for GI proph Seen by surgery 05/22, given clear liquids/NPO after midnight but planned for conservative tx w/ antibiotics given no fecolith on imaging and good results in the past with oral antibiotics without need for surgery. Has NOT needed anything for pain, remains afebrile and WBC wnl Seen AM 05/23, no abdominal pain on exam. Diet advanced to regular by surgery and recs to monitor on 1 more day of IV antibiotics and plan for discharge in AM on oral antibiotics to complete the course. (2) ADHD: Plan: ADHD- Hold Adderall while inpatient Plan DVT proph: SCDs ordered, has been ambulating in the room. Low risk Dispo: continued IV abx overnight and plan for dc on PO abx 05/24 to complete course per general surgery recommendations. Admission and Anticipated Discharge Date Admission Date: May 22, 2024 Supervising Physician Co-Signing Physician Notes The patient was not seen by me. The chart was reviewed. Case discussed with SANDRA Calderón. Agree with assessment and plan Subjective Seen this morning, doing well, ambulating to the bathroom. Labs stable, no white count, no fever. Surgery saw this morning, plans for another day of IV antibiotics and plan for discharge tomorrow on oral. Diet ordered. Will discontinue IVF. Plans for dc in AM unless any pain/fever/worsening symptoms. No CP/SOB. Questions/concerns addressed at this time. Physical Exam 2 Physical Exam: 29yo male ambulating in the room, NAD, l ooks well Head atraumatic, normocephalic, mmm Resp: no tachypnea/cough, no audible wheezing, 97% on RA CV: RRR, no significant mrg GI: +BS, soft, ,NONTENDER even to deep palpation, no rebound/rigidity MSK/Neuro: ambulating in the room without difficulty, not confused Psych: AOx3, cooperative with exam Results & Data Results & Data Vital Signs (Past 12 Hours) Vital Signs Temp Pulse Resp BP Pulse Ox O2 Del Method 05/23/24 07:38 36.4 C L 64 18 110/66 97 Room Air Diagnostic Findings 05/23/24 05:15 05/23/24 05:15 PG Care Time/CCT Total # of Minutes Spent Total Time Spent with Patient: Total time spent is greater than 50% in coordination of care (as documented) at patient's floor/unit and/or counseling patient: Coding Level of Care Code 86460 SUB INP/OBS CARE 2/35MIN Diagnoses Uncomplicated acute appendicitis K35.80 ADHD F90.9
--- NOTE | 2024-05-23 08:44 | Surgery Progress Note ---
Date of Service May 23, 2024 Assessment & Plan (1) Uncomplicated acute appendicitis: Plan: regular diet 1 more day of IV abx home tomorrow on po abx if does well; 10 day course with augmentin Admission and Anticipated Discharge Date Admission Date: May 22, 2024 Subjective almost no pain hungry Review of Systems Constitutional: no fever and no chills Respiratory: no cough and no dyspnea Cardiovascular: no chest pain Gastrointestinal: no abdominal pain, no nausea, no vomiting and no change in bowel habits Genitourinary: no dysuria Neurologic: no localized weakness and no generalized weakness Psychiatric: no behavioral changes Hematologic / Lymphatic: no easy bleeding and no easy bruising Physical Exam Constitutional: WD/WN, vitals as above Respiratory: normal respiratory effort, lungs clear to auscultation Cardiovascular: RRR, no murmur, no edema Gastrointestinal (Abdomen): Percussion/Palpation: abdomen soft; abdomen nontender, no guarding and abdomen not rigid Skin: no rashes, warm and dry Psychiatric: Orientation: alert Results & Data Vital Signs (Past 12 Hours) Vital Signs Temp Pulse Resp BP Pulse Ox O2 Del Method 05/23/24 07:38 36.4 C L 64 18 110/66 97 Room Air
[2024-05-23] MEDS: LACTATED RINGER'S 1,000 ML IV SCH (09:19)
[2024-05-24 06:27] LABS: Basophils # (auto) 0.03 K/uL (0.00-0.20); Basophils % (auto) 0.5 %; Eosinophils # (auto) 0.36 K/uL (0.00-0.50); Eosinophils % (auto) 5.7 %; Hematocrit (blood only) 43.5 % (42.0-52.0); Hemoglobin 14.9 g/dl (14.0-18.0); Immature Granulocytes # (auto) 0.01 K/uL (0.01-0.20); Immature Granulocytes % (auto) 0.2 %; Lymphocytes # (auto) 2.05 K/uL (1.20-3.40); Lymphocytes % (auto) 32.6 %; Mean Corpuscular Hemoglobin 28.9 pg (25.0-34.0); Mean Corpuscular Hgb Conc 34.3 g/dL (32.0-36.0); Mean Corpuscular Volume 84.5 fL (80.0-100.0); Mean Platelet Volume 11.4 fL (9.4-12.4); Monocytes # (auto) 0.67 K/uL (0.11-0.59); Monocytes % (auto) 10.7 %; Neutrophils # (auto) 3.17 K/uL (1.40-6.50); Neutrophils % (auto) 50.3 %; Platelet Count 219 K/uL (130-400); RDW Coefficient of Variation 11.8 % (11.5-14.5); RDW Standard Deviation 35.8 fL (36.4-46.3); Red Blood Count 5.15 M/uL (4.70-6.10); White Blood Count 6.29 K/ul (4.8-10.8)
[2024-05-24 06:51] LABS: Albumin Level 4.2 gm/dl (3.4-5.0); BUN Creatinine Ratio 13.2 (10-20); Calcium 9.2 mg/dl (8.6-10.3); Creatinine Clr Calc Pharmacy 143.1 ml/min
[2024-05-24 07:10] VITALS: RESP 18
[2024-05-24 07:32] VITALS: BP 112/63; PULSE 50; TEMP 98.4; O2SAT 96
--- NOTE | 2024-05-24 08:49 | Discharge Summary ---
Discharge Summary Date of Service May 24, 2024 Principal Dx & Hospital Course #1 = Principal Diagnosis (1) Uncomplicated acute appendicitis: 29yo male presented to the ED with RLQ abdominal pain without n/v/fever or chills and found to have evidence for uncomplicated appendicitis on CTAP General surgery was consulted and patient was placed on Zosyn IV antibiotics/IVF and made NPO until evaluation by surgery with ordered pain medications as needed. General surgery evaluated patient and given no fecollith on imaging and no leukocytosis/fevers or systemic symptoms recommended conservative treatment with antibiotic therapy and was continued on Zosyn IV without any fevers/chills, leukocytosis and abdominal pain resolved and tolerating diet and per surgery can discharge on augmentin BID x 10 day course for treatment. Discussed with patient can have f/u with surgery outpatient as desired but if develops any worsening abdominal pain/fever or chills/nausea or vomiting to return to the ER for repeat eval/possible appendectomy but per surgery feels should do well with antibiotic therapy alone. Follow up PCP at discharge, return to ER at discussed with any symptoms. (2) ADHD: Held home meds while inpatient but can resume at discharge Plan Planning for discharge on Augmentin to complete course Notes For Next Care Provider Ensure no repeat/worsening symptoms with antibiotic therapy Medication Changes From Visit Augmentin 1 tablet PO BID x 10 days Admission HPI Per Admitting Provider The patient is a 29-year-old male with a past medical history including ADHD and history of umbilical hernia repair, who presents to the emergency department with acute onset of right lower quadrant pain without associated symptoms of nausea, vomiting, fevers, chills, change in bowel or bladder habits. CT scan of abdomen pelvis shows acute uncomplicated appendicitis. General surgery consulted by the ED, asks that the patient be admitted to the [facility] and be placed on IV antibiotics until seen by general surgery Admission Exam Per Admitting Provider The patient is awake, alert and oriented 3, well developed and well nourished, normocephalic and atraumatic, lying in bed and in no acute distress. HEENT--PERRL, EOMI, mucous membranes and oropharynx mildly dry. Neck--supple. No JVD. No bruits. Thyroid normal, trachea midline, no adenopathy. Heart--normal S1 and S2. No murmurs, rubs or gallops. Lungs--clear bilaterally, no respiratory distress, no accessory muscle use. Abdomen--normal bowel sounds and soft. Mild right lower quadrant tenderness. No rebound. Nondistended, no hernias or masses, no organomegaly. Extremities--no cyanosis or clubbing. No edema. Dermatologic--normal skin turgor, normal color, no abnormal lymph nodes, no rash. Neurologic--cranial nerves II through XII grossly intact. Rheumatologic--normal range of motion. Psychiatric--normal affect. Discharge Exam 29yo male ambulating in the room, NAD, looks well, no pain Head atraumatic, normocephalic, mmm Resp: no tachypnea/cough, no audible wheezing, 97% on RA CV: RRR, no significant mrg GI: +BS throughout ,NONTENDER even to deep palpation, no rebound/rigidity MSK/Neuro: ambulating in the room without difficulty, not confused Psych: AOx3, cooperative with exam Discharge Plan Discharge Items Patient Disposition: Home - Self-Care Reason For Visit: ACUTE UNCOMPLICATED APPENDICITIS Discharge Diagnosis: Appendicitis, uncomplicated Goals: You have been hospitalized for an acute medical problem. During your stay at [facility], we have made an effort to correct the problem that brought you to the hospital while keeping you as comfortable as possible. Medications were used to bring your condition under control and your discharge instructions will include directions for any medications you should take after leaving the hospital. Please make sure you see your Primary Care Provider as part of your follow up plan. Activity: Resume your previous activity Non-emergency contact: Primary Care Provider and Surgeon Call non-emergency contact if: you have any medication questions, your symptoms worsen, your pain is not controlled, your pain is concerning for you and you have a fever Follow-up/Referrals: Mj Harris III, CRNP [Primary Care Provider] - 05/27/24 9:20 am Clyde Zamudio MD [Physician] - 05/26/24 1:15 pm Diet: Regular Addtl Attending Provider Instructions: You have been hospitalized for abdominal pain and CT imaging was found to have appendicitis, uncomplicated, without perforation/abscess. You were placed on IV antibiotics and general surgery was consulted and reviewed imaging and recommended course of IV/oral antibiotics for treatment and believes you will do well without need for surgery given uncomplicated nature/no white count/fever and improvement in pain without need for medications. At discharge, you are being sent on AUGMENTIN (antibiotic) which is to be taken twice daily by mouth for 10 days. Please notify if any significant diarrhea/abdominal pain or fevers and return to the ER if this occurs (or for any other symptoms concerning for you). You should follow up with primary care in the next 7-10 days to monitor your progress after discharge. If having any repeat symptoms/worsening abdominal pain/fever or chills you should return to the ER but we are hopeful for resolution on antibiotic therapy given your improvement while in the hospital. It has been a pleasure being a part of the medical team providing for you while you have been in the hospital. Take care! Pending Studies at Discharge: No Stand-Alone Forms: My [facility] [place], Smoking Cessation Medications and DC Order Prescriptions: New amoxicillin-pot clavulanate 875-125 mg tablet 1 tab PO BID 10 Days Qty: 20 0RF Continued dextroamphetamine-amphetamine [Adderall] 30 mg tablet 30 mg PO DAILY Qty: 30 0RF naproxen sodium [Aleve] 220 mg Tablet 220 mg PO BID PRN (Reason: Pain) ibuprofen 200 mg Tablet 200 mg PO Q6H PRN (Reason: Pain) Discharge Orders: Discharge Order (Routine); Ordered 05/24/24 Ordered By: Barbi Mcdonald Admission Data Admit Date/Time: 05/22/24 01:41 Attending Provider: Karlee Jj Admit Provider: Antonio Quan Primary Care Provider: Mj Harris III Other Providers: Antonio Quan; Clyde Zamudio Hospital Stay Data Consultations 05/22/24 00:56 ED Decision to Admit Stat 05/22/24 03:01 Consult General Surgery Routine Diagnostic Imagining Performed Abdomen/Pelvis CT 05/21/24 18:33 CR Exam(s): CT ABDOMEN + PELVIS With Contrast IV Amt: 94 ml opti 320 EXAM: CT Abdomen and Pelvis With Intravenous Contrast CLINICAL HISTORY: Reason for exam: RLQ pain, appendicitis. TECHNIQUE: Axial computed tomography images of the abdomen and pelvis with intravenous contrast. CTDI is 27.59 mGy and DLP is 1436.44 mGy-cm. Automated exposure control was utilized for the study. A dose lowering technique was utilized adhering to the principles of ALARA. CONTRAST: Patient received 94 ml opti 320 of IV contrast COMPARISON: No relevant prior studies available. FINDINGS: ABDOMEN: Liver: Unremarkable. Gallbladder and bile ducts: Unremarkable. Pancreas: Unremarkable. Spleen: Unremarkable. Adrenals: Unremarkable. Kidneys and ureters: Unremarkable. No obstructing stones. No hydronephrosis. Stomach and bowel: Unremarkable. PELVIS: Appendix: Mucosal thickening and hyperemia within the appendix which is fluid filled measuring up to 1 cm. Periappendiceal fat stranding present. No perforation or abscess. Bladder: Unremarkable. Reproductive: Unremarkable as visualized. ABDOMEN and PELVIS: Intraperitoneal space: Unremarkable. No free air. No significant fluid collection. Bones/joints: No acute fracture. Soft tissues: Unremarkable. Vasculature: Unremarkable. Lymph nodes: Unremarkable. IMPRESSION: Acute uncomplicated appendicitis. Communications: Verify Receipt Electronically signed by: Sesar Busby MD 05/21/24 23:16 PM Pending Results Patient Have Any Pending Studies at Discharge: No Discharge Instructions Given to Patient (Per Discharging Provider) You have been hospitalized for abdominal pain and CT imaging was found to have appendicitis, uncomplicated, without perforation/abscess. You were placed on IV antibiotics and general surgery was consulted and reviewed imaging and recommended course of IV/oral antibiotics for treatment and believes you will do well without need for surgery given uncomplicated nature/no white count/fever and improvement in pain without need for medications. At discharge, you are being sent on AUGMENTIN (antibiotic) which is to be taken twice daily by mouth for 10 days. Please notify if any significant diarrhea/abdominal pain or fevers and return to the ER if this occurs (or for any other symptoms concerning for you). You should follow up with primary care in the next 7-10 days to monitor your progress after discharge. If having any repeat symptoms/worsening abdominal pain/fever or chills you should return to the ER but we are hopeful for resolution on antibiotic therapy given your improvement while in the hospital. It has been a pleasure being a part of the medical team providing for you while you have been in the hospital. Take care! Total Time Total Time Spent Total Time Spent (In Minutes): 35 Coding Level of Care Code 38102 INP/OBS DISCH >30 MIN Diagnoses Uncomplicated acute appendicitis K35.80 ADHD F90.9
--- NOTE | 2024-05-24 11:41 | Surgery Progress Note ---
Date of Service May 24, 2024 Assessment & Plan (1) Uncomplicated acute appendicitis: Plan: Treated conservatively with IV antibiotics pain resolved afebrile Plan: discharge today with 10 day course of Augmentin advised to monitor for any recurrence of symptoms and report back to emergency department with pain that is not controlled or any fevers Follow-up PCP Discussed with Dr. Soto who agrees with above. Admission and Anticipated Discharge Date Admission Date: May 22, 2024 Subjective feeling good abdominal pain resolved no n,v tolerating diet no fevers, chills, sweats Physical Exam Constitutional: WD/WN, vitals as above cooperative and comfortable; no acute distress and not ill appearing Respiratory: normal respiratory effort; no respiratory distress and no labored breathing Gastrointestinal (Abdomen): Inspection/Auscultation: abdomen normal to inspection; abdomen not distended Percussion/Palpation: abdomen soft; abdomen nontender, no guarding, abdomen not rigid and abdomen not firm Skin: no rashes, warm and dry Psychiatric: A+Ox3, euthymic affect Results & Data Vital Signs (Past 12 Hours) Vital Signs Temp Pulse Resp BP Pulse Ox O2 Del Method 05/24/24 07:31 36.9 C 50 L 18 112/63 96 Room Air 05/24/24 07:06 36.3 C L 73 18 158/84 H 94 Room Air Laboratory Results 05/24/24 Range/Units 05:29 WBC 6.29 (4.8-10.8) K/ul RBC 5.15 (4.70-6.10) M/uL Hgb 14.9 (14.0-18.0) g/dl Hct 43.5 (42.0-52.0) % MCV 84.5 (80.0-100.0) fL MCH 28.9 (25.0-34.0) pg MCHC 34.3 (32.0-36.0) g/dL RDW Std Deviation 35.8 L (36.4-46.3) fL RDW Coeff of Estefanía 11.8 (11.5-14.5) % Plt Count 219 (130-400) K/uL MPV 11.4 (9.4-12.4) fL Immature Gran % (Auto) 0.2 % Neut % (Auto) 50.3 % Lymph % (Auto) 32.6 % Ford % (Auto) 10.7 % Eos % (Auto) 5.7 % Baso % (Auto) 0.5 % Neut # (Auto) 3.17 (1.40-6.50) K/uL Lymph # (Auto) 2.05 (1.20-3.40) K/uL Ford # (Auto) 0.67 H (0.11-0.59) K/uL Eos # (Auto) 0.36 (0.00-0.50) K/uL Baso # (Auto) 0.03 (0.00-0.20) K/uL Immature Gran # (Auto) 0.01 (0.01-0.20) K/uL Sodium 141 (136-145) mmol/L Potassium 4.0 (3.5-5.1) mmol/L Chloride 108 H (98-107) mmol/L Carbon Dioxide 27 (21-32) mmol/L Anion Gap 6 (3-11) BUN 12 (6-23) mg/dl Creatinine 0.91 (0.6-1.4) mg/dl Est Cr Clr Drug Dosing 143.1 ml/min eGFR 117.00 BUN/Creatinine Ratio 13.2 (10-20) Glucose 98 (70-99(Fasting)) mg/dl Calcium 9.2 (8.6-10.3) mg/dl Phosphorus 4.0 (2.5-4.9) mg/dl Albumin 4.2 (3.4-5.0) gm/dl
== END 2024-05-24 12:21 | disposition home or self-care (01) | DRG 395 ==
LOC: ED 16:53 → 3W 05-22 01:41 → SUATTDRO 05-22 01:41 → 3W 05-22 02:50